=== PATIENT | male | born 1995 | race Caucasian/White ===

== ENCOUNTER 2017-09-30 21:54 | Emergency (ER) | payer OTHER ==
[~2017-09-30] VITALS: Ht 170.2 cm; Wt 71.2 kg
[2017-09-30 22:02] VITALS: Ht 170.2 cm; Wt 71.2 kg
[2017-09-30 23:02] VITALS: BP 136/81
== END 2017-09-30 23:02 | disposition home or self-care (01) ==
LOC: ED 21:54
DX: S93.505A Unspecified sprain of left lesser toe(s), initial encounter (principal); X58.XXXA Exposure to other specified factors, initial encounter; Y93.89 Activity, other specified; Y92.89 Other specified places as the place of occurrence of the external cause; Y99.8 Other external cause status
CPT/HCPCS: Q0092

== ENCOUNTER 2018-04-30 19:12 | Emergency (ER) | payer OTHER ==
[2018-04-30 21:42] VITALS: BP 136/89
== END 2018-04-30 21:42 | disposition home or self-care (01) ==
LOC: ED 19:12
DX: N48.5 Ulcer of penis (principal); A57 Chancroid
CPT/HCPCS: 86694; J0696

== ENCOUNTER 2018-05-03 13:35 | Emergency (ER) | payer OTHER ==
[~2018-05-03] VITALS: Ht 170.2 cm; Wt 71.7 kg
[2018-05-03 13:57] VITALS: BP 119/81
== END 2018-05-03 14:35 | disposition home or self-care (01) ==
LOC: ED 13:35
DX: N48.5 Ulcer of penis (principal)